=== PATIENT | female | born 1980 | race Caucasian/White ===

== ENCOUNTER 2023-04-27 09:32 | Outpatient (CLI) | payer BC | END 2023-04-27 09:33 | disposition home or self-care (01) | LOC: SCSMRI 09:32 | PROVIDERS: ATTEND Neurological Surgery | DX: M47.22 Other spondylosis with radiculopathy, cervical region (principal) | CPT/HCPCS: 70551; 72141 ==

== ENCOUNTER 2023-06-08 12:29 | Outpatient (CLI) | payer BC | END 2023-06-08 12:30 | disposition home or self-care (01) | LOC: SCSRAD 12:29 | PROVIDERS: ATTEND Neurological Surgery | DX: M54.2 Cervicalgia (principal); M47.812 Spondylosis without myelopathy or radiculopathy, cervical region | CPT/HCPCS: 72050 ==